=== PATIENT | male | born 1960 | race Caucasian/White ===

== ENCOUNTER 2023-05-21 10:28 | Emergency (ER) | payer BC ==
[~2023-05-21] VITALS: Ht 170.2 cm; Wt 75.3 kg
[2023-05-21] MEDS ORDERED: FENOFIBRATE145 MG PO (10:55)
[2023-05-21] MEDS ORDERED: ATORVASTATIN CA40 MG PO (10:57)
[2023-05-21 12:41] LABS: HEMATOCRIT 42.2 % (39.0-48.0); HEMOGLOBIN 14.5 g/dL (13-16.00); MEAN CELL VOLUME 92.1 fL (80.0-100.00); MEAN CORPUSCULAR HEMOGLOBIN 31.7 pg (27.00-32.0); MEAN CORPUSCULAR HGB CONC 34.4 g/dl (32.0-36.0); PLATELET COUNT 363 K/uL (150-450); RED BLOOD COUNT 4.58 M/uL (4.00-6.00); RED CELL DISTRIBUTION WIDTH 13.1 % (11.5-14.5)
[2023-05-21 13:19] LABS: ALBUMIN 3.1 gm/dL (3.4-5.0); BILIRUBIN TOTAL 0.53 mg/dL (0.3-1.2); CALCIUM 9.6 mg/dL (8.5-10.1); CREATININE SERUM 1.69 mg/dL (0.70-1.30); GFR 41.32; POTASSIUM 5.24 mEq/L (3.5-5.1); TOTAL PROTEIN 8.1 gm/dL (6.4-8.2); URIC ACID 9.1 mg/dL (3.5-8.5)
[2023-05-21] MEDS ORDERED: COLCRYS0.6 MG PO (13:34)
[2023-05-21] MEDS ORDERED: KETO10TA2 PO (13:34)
== END 2023-05-21 14:05 | disposition home or self-care (01) ==
LOC: ER 10:29
PROVIDERS: General Practice
DX: M10.9 Gout, unspecified (principal); Z91.013 Allergy to seafood